=== PATIENT | male | born 1960 | race Caucasian/White ===

== ENCOUNTER → 2023-11-22 | Outpatient (CLI) | payer BC ==
[~2023-11-22] VITALS: Ht 180.3 cm; Wt 107.3 kg
[~2023-11-22] MED LIST: ASPIRIN E.C. 8181 MG PO; FLOMAX 0.40.4 MG/CAP PO; Regadenoson 0.08 MG/ML 5 ML SYRINGE IV SCH; TOPROL XL100 MG PO
[2023-11-22 07:13] VITALS: BP 130/60; PULSE 49; TEMP 98.7
[2023-11-22 08:05] VITALS: BP 179/88; PULSE 82
[2023-11-22 08:09] VITALS: BP 157/76; PULSE 102
[2023-11-22 08:11] VITALS: PULSE 97
[2023-11-22 08:13] VITALS: BP 160/76; PULSE 107
== END ==
LOC: COL.RAD 06:45
DX: R07.9 Chest pain, unspecified (principal)
CPT/HCPCS: A9500-JZ; J2785